=== PATIENT | female | born 1955 | race Caucasian/White ===

== ENCOUNTER 2018-06-21 18:34 | Emergency (ER) | payer BC ==
[2018-06-21] MEDS ORDERED: Ketorolac Tromethamine 30 MG/ML VIAL ONE (19:23)
--- NOTE | 2018-06-21 20:16 | RAD ---
RIGHT ANKLE THREE VIEWS: 06/21/18 HISTORY: 63-year-old female with history of right ankle injury following slip and fall and twisting injury. Lateral soft tissue swelling is noted. Mild degenerative changes of the ankle joint. No acute fractur e or dislocation. No evidence for talar dome osteochondral lesion. IMPRESSION: Minimal lateral soft tissue swelling. No acute fracture or dislocation. POS: [facility]
== END 2018-06-21 19:38 | disposition home or self-care (01) ==
LOC: ERS 18:34
DX: S93.401A Sprain of unspecified ligament of right ankle, initial encounter (principal); E78.5 Hyperlipidemia, unspecified; W01.0XXA Fall on same level from slipping, tripping and stumbling without subsequent striking against object, initial encounter
CPT/HCPCS: 96372; J1885

== ENCOUNTER 2018-06-27 10:14 | Outpatient (CLI) | payer BC ==
--- NOTE | 2018-06-27 13:36 | ULT ---
COMPLETE ABDOMEN ULTRASOUND: INDICATIONS: Elevated LFTs. FINDINGS: There is 2.2 cm cyst within the posterior right hepatic lobe that was seen on a comparison CT, dated 12/19/2013, from [facility]. The visualized gallbladder is normal appearing. The spleen measures 9.2 cm. The visualized aorta and IVC are within normal limits. The visualized main portal vein appears within normal limits. No sonographic Morrison sign is reported. The common bile duct measures 3.5 mm. The visualized pancreas is unremarkable. The right kidney measures 9.1 x 5.2 x 4.5 cm. The left kidney measures 10.4 x 4.8 x 4.7 cm. No hydronephrosis or definite solid re nal lesion is demonstrated. IMPRESSION: 1. Stable right hepatic lobe cyst, measuring 2.2 cm, within the posterior right hepatic lobe. 2. No additional acute sonographic abnormality. POS: [facility]
== END 2018-06-27 10:15 | disposition home or self-care (01) ==
LOC: BICULT 10:14
PROVIDERS: ATTEND Family Medicine
DX: R74.8 Abnormal levels of other serum enzymes (principal); K76.89 Other specified diseases of liver
CPT/HCPCS: 76700

== ENCOUNTER 2018-07-02 11:50 | Outpatient (CLI) | payer BC | END 2018-07-02 11:51 | disposition home or self-care (01) | LOC: BICMAMMO 11:50 | PROVIDERS: ATTEND Family Medicine | DX: Z12.31 Encounter for screening mammogram for malignant neoplasm of breast (principal) | CPT/HCPCS: 77063; 77067 ==

== ENCOUNTER 2018-08-12 20:34 | Emergency (ER) | payer BC ==
[2018-08-12 22:29] LABS: Hemoglobin 14.3 g/dL (12.0-16.0); Mean Corpuscular HGB CONC 33.6 g/dL (32.0-36.0); Mean Corpuscular Volume 89.4 fL (78.0-98.0); Platelet Count 244 thou/uL (130-400); RBC Distribution Width 13.4 % (11.5-14.5); Red Blood Cell (RBC) Count 4.77 mill/uL (4.20-5.40); White Blood Cell (WBC) Count 12.5 thou/uL (4.8-10.8)
[2018-08-12 22:51] LABS: ALT (SGPT) 23 U/L (8-55); AST (SGOT) 21 U/L (5-34); Albumin 4.6 g/dL (3.4-4.8); Alkaline Phosphatase 88 U/L (40-150); Anion Gap 15 mmol/L (10-20); BUN (Urea Nitrogen) 13 mg/dL (9.8-20.1); Bilirubin, Total 0.3 mg/dL (0.2-1.2); CK (CPK) 49 U/L (29-168); Calc. Creatinine Clearance 0 mL/min (70-130); Calcium 9.9 mg/dL (7.8-10.44); Carbon Dioxide 21 mmol/L (23-31); Chloride 106 mmol/L (98-107); Estimated GFR-MDRD 86; Glucose 130 mg/dL (80-115); Lipase 29 U/L (8-78); Potassium 4.7 mmol/L (3.5-5.1); Protein, Total 7.6 g/dL (6.0-8.3); Sodium 137 mmol/L (136-145)
--- NOTE | 2018-08-12 23:09 | CT ---
CT HEAD WITHOUT CONTRAST: Technique: Multiple contiguous axial images were obtained through the head without IV enhancement. Indications: Headache. FINDINGS: Ventricles have normal size and position. No evidence of intracranial mass or hemorrhage. No infarct or edema is seen. Sinuses are clear. IMPRESSION: Unremarkable exam. POS: [facility]
[2018-08-12] MEDS ORDERED: hydrOXYzine 25 MG TAB ONE (23:16)
[2018-08-12] MEDS ORDERED: Metoclopramide HCl 10 MG/2 ML VIAL ONE (23:16)
[2018-08-12] MEDS ORDERED: Dexamethasone 4 mg/ml Vial ONE (23:16)
[2018-08-12 23:18] LABS: Band 7 % (5-11); Eosinophils 1 % (0-10); Lymphocytes 4 % (21-51); MDiff Complete? YES; Neutrophil 88 % (42-75); PLT Morphology Comment Appears Adequate; RBC Morphology Normal
== END 2018-08-12 23:41 | disposition home or self-care (01) ==
LOC: ERS 20:34
DX: L50.9 Urticaria, unspecified (principal); R51 Headache; E78.5 Hyperlipidemia, unspecified; Z79.899 Other long term (current) drug therapy
CPT/HCPCS: 36415; 70450; 80053; 82550; 83690; 85025; 96374; 96375; J1100; J2765

== ENCOUNTER 2020-11-17 07:39 | Outpatient (CLI) | payer BC | END 2020-11-17 07:40 | disposition home or self-care (01) | LOC: BICMAMMO 07:39 | PROVIDERS: ATTEND Family Medicine | DX: Z13.820 Encounter for screening for osteoporosis (principal); M85.852 Other specified disorders of bone density and structure, left thigh | CPT/HCPCS: 77080 ==

== ENCOUNTER 2023-01-04 09:50 | Outpatient (CLI) | payer MEDICARE | END 2023-01-04 09:51 | disposition home or self-care (01) | LOC: BICMAMMO 09:50 | PROVIDERS: ATTEND Family Medicine | DX: Z13.820 Encounter for screening for osteoporosis (principal); M85.851 Other specified disorders of bone density and structure, right thigh; M85.852 Other specified disorders of bone density and structure, left thigh; Z78.0 Asymptomatic menopausal state | CPT/HCPCS: 77080 ==

== ENCOUNTER 2025-03-28 14:42 | Outpatient (CLI) | payer MEDICARE | END 2025-03-28 14:43 | disposition home or self-care (01) | LOC: BICMAMMO 14:42 | PROVIDERS: ATTEND Family Medicine | DX: Z12.31 Encounter for screening mammogram for malignant neoplasm of breast (principal) | CPT/HCPCS: 77063; 77067 ==